=== PATIENT | male | born 1990 | race Hispanic/Latino ===

== ENCOUNTER 2022-07-02 07:56 | Emergency (ER) | payer SELFPAY ==
[~2022-07-02] VITALS: Ht 170.2 cm; Wt 70.0 kg
[2022-07-02 08:28] LABS: URINE BILIRUBIN - DIPSTICK NEGATIVE (NEGATIVE); URINE BLOOD DIPSTICK NEGATIVE (NEGATIVE); URINE COLOR YELLOW; URINE GLUCOSE - DIPSTICK NEGATIVE (NEGATIVE); URINE KETONE NEGATIVE (NEGATIVE); URINE LEUK ESTERASE NEGATIVE (NEGATIVE); URINE PH 7.5 (4.5-8.0); URINE PROTEIN - DIPSTICK NEGATIVE (NEG-TRACE); URINE UROBILINOGEN - DIPSTICK 0.2 E.U./dL (0.2)
[2022-07-02 08:40] LABS: URINE NITRITE - DIPSTICK NEGATIVE (Negative)
[2022-07-02 09:16] VITALS: BP 127/77
[2022-07-03] MEDS ORDERED: NAPROXEN500 MG PO (11:25)
== END 2022-07-02 09:25 | disposition home or self-care (01) | DRG 696 ==
LOC: ED 07:56
PROVIDERS: Emergency Medicine
DX: R30.0 Dysuria (principal); R39.15 Urgency of urination; N48.89 Other specified disorders of penis; Z20.2 Contact with and (suspected) exposure to infections with a predominantly sexual mode of transmission

== ENCOUNTER 2022-07-03 09:22 | Emergency (ER) | payer SELFPAY ==
[~2022-07-03] VITALS: Ht 170.2 cm; Wt 70.0 kg
[2022-07-03 09:35] VITALS: BP 133/79
[2022-07-03 10:00] VITALS: BP 117/72
[2022-07-03 10:30] VITALS: BP 119/74
[2022-07-03 10:45] LABS: HEMATOCRIT 46.7 % (39.0-50.0); HEMOGLOBIN 15.8 g/dl (14.0-18.0); IMMATURE GRANULOCYTES 0.2 % (0.0-5.0); MEAN CELL VOLUME 92.1 fL CALC (80.0-100.0); MEAN CORPUSCULAR HGB 31.2 pG CALC (26.0-32.0); MEAN CORPUSCULAR HGB CONC 33.8 g/dL CAL (32.0-36.0); NEUT# 4.16 thou/uL (1.82-7.42); RED BLOOD COUNT 5.07 mill/uL (4.70-6.10); RED CELL DISTRI WIDTH 12.4 % (11.5-15.5)
[2022-07-03 10:55] LABS: ALBUMIN 4.9 g/dL (3.2-5.0); ALKALINE PHOSPHATASE 63 u/l (38-126); AMYLASE 71 u/l (30-110); ANION GAP 13 (6-22 (CALC)); BILIRUBIN, TOTAL 0.4 mg/dL (0.0-1.4); BUN 15 mg/dL (9-20); BUN/CREATININE RATIO 20 (12-20 (CALC)); CARBON DIOXIDE 30 mmol/l (22-30); CHLORIDE 105 mmol/l (95-108); CREATININE 0.8 mg/dL (0.7-1.3); GFR FOR AFR.AMER. > 60 ML/MIN (>=60 (CALC)); GFR OTHER RACES > 60 ML/MIN (>=60 (CALC)); LIPASE 45 u/l (23-300); POTASSIUM 4.7 mmol/l (3.5-5.1); SGOT/AST 29 u/l (17-59); SODIUM 143 mmol/l (137-146); TOTAL PROTEIN 7.6 g/dL (6.3-8.2)
[2022-07-03] MEDS ORDERED: NAPROXEN500 MG PO (11:25)
[2022-07-03 11:30] VITALS: BP 126/72
[2022-07-03 11:33] VITALS: BP 119/74
== END 2022-07-03 12:00 | disposition home or self-care (01) | DRG 313 ==
LOC: ED 09:22
PROVIDERS: Emergency Medicine
DX: R07.89 Other chest pain (principal)